=== PATIENT | male | born 1980 | race Caucasian/White ===

== ENCOUNTER 2021-05-25 23:55 | Emergency (ER) | payer OTHER ==
[~2021-05-25] VITALS: Ht 175.3 cm; Wt 79.4 kg
[2021-05-26] MEDS ORDERED: VALTREX1000 MG (00:15)
[2021-05-26] MEDS ORDERED: SYNTHROID112 MCG (00:15)
[2021-05-26] MEDS ORDERED: CLONAZEPAM1 M1 (00:16)
[2021-05-26] MEDS ORDERED: ACETAMINOPHEN650 M2 PO (04:48)
== END 2021-05-26 06:06 | disposition home or self-care (01) ==
LOC: ER 23:55
DX: S00.83XA Contusion of other part of head, initial encounter (principal); W18.30XA Fall on same level, unspecified, initial encounter; Y93.9 Activity, unspecified; Y92.9 Unspecified place or not applicable; Y99.9 Unspecified external cause status; E03.9 Hypothyroidism, unspecified; R42 Dizziness and giddiness